=== PATIENT | male | born 1940 | race Caucasian/White ===

== ENCOUNTER → 2018-06-27 | Outpatient (CLI) | payer MEDICARE ==
--- NOTE | 2018-06-27 09:55 | US ---
EXAMINATION TYPE: US abdomen comp/pelvis limited DATE OF EXAM: 06/27/2018 COMPARISON: NONE CLINICAL HISTORY: Z85.51 HX MALIGNANT NEOPLASM OF BLADDER. Patient states abnormal bladder cells. His tory of bladder CA. Patient did not drink water to fill his bladder. Declined option to fill his blad brittany while he was here. EXAM MEASUREMENTS: Liver Length: 15.0 cm Gallbladder Wall: 0.2 cm CBD: 0.5 cm Spleen: 12.0 cm Right Kidney: 10.3 x 6.4 x 5.7 cm Left Kidney: 10.0 x 6.3 x 5.6 cm Pancreas: Obscured by bowel gas Liver: Heterogeneous echotexture Gallbladder: Multiple stones visualized CBD: wnl as visualized, distal portion obscured by bowel gas Spleen: wnl Right Kidney: No hydronephrosis or masses seen Left Kidney: No hydronephrosis. Echogenic foci visualized measuring 0.6 cm Upper IVC: wnl Abd Aorta: Proximal portion obscured by bowel gas. Atherosclerotic changed visualzied. No sonographi c evidence for AAA. Bladder: Bladder not fully distended which limits exam. Echogenic area visualized to the left measuri ng 2.1 x 1.6 x 1.8 cm. Probable prostate gland enlargement. IMPRESSION: 1. Fatty liver. 2. Cholelithiasis. 3. Nonobstructing left renal calculus.
== END | disposition home or self-care (01) ==
LOC: RADUSWWP 08:41
PROVIDERS: ATTEND Family Medicine
DX: N20.0 Calculus of kidney (principal); K80.20 Calculus of gallbladder without cholecystitis without obstruction; K76.0 Fatty (change of) liver, not elsewhere classified; Z85.51 Personal history of malignant neoplasm of bladder
CPT/HCPCS: 76700; 76857

== ENCOUNTER → 2020-11-16 | Outpatient (CLI) | payer MEDICARE ==
--- NOTE | 2020-11-16 15:10 | US ---
EXAMINATION TYPE: US venous doppler duplex LE DATE OF EXAM: 11/16/2020 11:59 AM COMPARISON: NONE CLINICAL HISTORY: R60.0 edema low extremities. edema on left leg, no h/o dvt SIDE PERFORMED: Bilateral TECHNIQUE: The lower extremity deep venous system is examined utilizing real time linear array sonog yeimi with graded compression, doppler sonography and color-flow sonography. VESSELS IMAGED: Common Femoral Vein Deep Femoral Vein Greater Saphenous Vein * Femoral Vein Popliteal Vein Small Saphenous Vein * Proximal Calf Veins (* superficial vessels) There is normal flow, compressibility, vascular waveforms. Right Leg: Negative for DVT Left Leg: Negative for DVT IMPRESSION: No evident deep venous thrombosis at or above the knees
== END | disposition home or self-care (01) ==
LOC: RADUSWWP 11:28
PROVIDERS: ATTEND Family Medicine
DX: R60.0 Localized edema (principal)
CPT/HCPCS: 93970